=== PATIENT | female | born 1945 | race Caucasian/White ===

== ENCOUNTER 2021-05-29 18:51 | Inpatient (IN) ==
[2021-05-29] MEDS ORDERED: ONDANSETRON 4 MG/2 ML VIAL IV PRN ×2 (19:06→21:45)
[2021-05-29] MEDS ORDERED: LACTATED RINGERS 1,000 ML IV ONE (19:06)
--- NOTE | 2021-05-29 19:41 | Emergency Department Note ---
Lower Extremity Injury HPI General Chief Complaint: Extremity Injury, Lower Stated Complaint: left hip fx Time Seen by Provider: 05/29/21 19:06 Source: patient, EMS and RN notes reviewed Mode of arrival: EMS Limitations: no limitations History of Present Illness HPI Narrative: Narrative: Patient is a 75-year-old female who last night approximately 6 PM tripped on a rug or perhaps one of her cats and fell landing on her left hip. She had no loss of consciousness. She denied any syncope dizziness or preemptive symptoms. She was unable to get herself up and ended up lying on the floor until this morning when a neighbor checked on her. She stated that she did not have her cell phone or other means of calling nearby. She denies any neck or back pain no chest pain. No heart palpitations. She was seen initially at the ER in [facility] where she had notation of a left hip fracture. Consultation was made with orthopedist who agreed the patient could be treated here and she has transported for further orthopedic care. Patient was with reported total CK of 1400. She has been alert and appropriate. She notes the pain in the left hip with any movement but otherwise is quite comfortable and is mainly complaint of nausea secondary to the pain medications. She has normal sensation in the leg. She is status post previous right total hip arthroplasty. Related Data Home Medications Medication Instructions Recorded Confirmed Vitamin D3 05/29/21 levothyroxine 100 mcg PO QDAY 05/29/21 05/29/21 naproxen sodium 220 mg PO BID PRN 05/29/21 05/29/21 Allergies Allergy/AdvReac Type Severity Reaction Status Date / Time Sulfa (Sulfonamide Allergy Intermediate Hives Verified 05/29/21 18:56 Antibiotics) codeine AdvReac Intermediate Nausea Verified 05/29/21 18:56 Review of Systems ROS ROS Narrative: Narrative: A 10 system review of systems was performed and found to be negative except as o utlined above. PFSH Narrative Patient History Narrative: Narrative: Medical/Surgical/Family History All Active Problems (Updated 05/29/21 @ 20:56 by Bera Harper MD) Fracture of hip (Acute) Social History Smoking Status: Never smoker Exam Narrative Narrative: Narrative: General: Alert, Nontoxic, GCS 15. Speaking full sentences without dyspnea. She is thin appearing HEENT: NCAT, PERRL, Oral pharynx with dry mucus membranes. No pharyngeal erythema. No conjunctival pallor Neck: Supple, No lymphadenopathy Chest: Stable Heart: Regular rate and rhythm without murmur Lungs: Clear to auscultation bilaterally Abdomen: Soft, nondistended, nontender : No bladder distention Back: Nontraumatic, No CVA tenderness to palpation. Skin: No rash or lesion Extremity: Shortening and external rotation of the left lower extremity. Pulses 1+ at the radial and dorsalis pedis bilaterally. Neurologic: Moves all extremities in appropriate coordinated fashion with the limitation of movement of the left hip. She otherwise is with normal movement at the foot and ankle on the left. General Limitations: no limitations Course Vital Signs Vital signs: Vital Signs Temperature 98.5 F 05/29/21 18:52 Pulse Rate 86 05/29/21 18:52 Respiratory Rate 18 05/29/21 18:52 Blood Pressure 120/88 05/29/21 18:52 Pulse Oximetry (%) 91 05/29/21 18:52 Temperature 98.5 F 05/29/21 18:52 Pulse Rate 98 H 05/29/21 20:31 Respiratory Rate 18 05/29/21 18:52 Blood Pressure 140/69 05/29/21 20:31 Pulse Oximetry (%) 97 05/29/21 20:31 MDM MDM Narrative Medical decision making narrative: Narrative: Patient is with subtrochanteric left femur fracture with avulsion of the lesser trochanter. She has pain controlled at this time. She was given IV fluid hydration and will be admitted to the hospitalist service with further orthopedic consultation for the break. No evidence of head injury. Patient did not have precipitating symptoms and notes it is a mechanical fall. Lab Data Result diagrams: 05/29/21 19:15 05/29/21 19:15 Labs: Lab Results 05/29/21 05/29/21 05/29/21 Range/Units 19:15 19:15 19:15 WBC 9.2 (4.5-11.0) K/mcL RBC 3.34 L (4.00-5.20) M/mcL Hgb 9.9 L (12.0-15.0) g/dL Hct 30.2 L (36.0-48.0) % MCV 90.4 (80.0-100.0) fL MCH 29.6 (26.0-34.0) pg MCHC 32.8 (31.0-36.0) g/dL RDW 12.8 (11.5-14.5) % Plt Count 195 (140-440) K/mcL MPV 9.3 (7.4-10.4) fL Neut % (Auto) 84.3 H (38.0-78.0) % Lymph % (Auto) 7.2 L (15.0-49.0) % [place] % (Auto) 8.2 (1.0-12.0) % Eos % (Auto) 0 (0.0-7.0) % Baso % (Auto) 0.3 (0.0-2.0) % Lymph # (Auto) 0.66 L (1.50-4.80) K/mcL [place] # (Auto) 0.75 (0.10-0.90) K/mcL Eos # (Auto) 0 (0.00-0.70) K/mcL Baso # (Auto) 0.03 (0.00-0.20) K/mcL Absolute Neutrophils 7.76 (1.80-8.00) K/mcL Sodium 138 (133-145) mmol/L Potassium 3.5 (3.3-5.1) mmol/L Chloride 105 (96-108) mmol/L Carbon Dioxide 22 (22-30) mmol/L Anion Gap 11.0 (8.0-16.0) BUN 15 (8-23) mg/dL Creatinine 0.5 L (0.6-1.1) mg/dL GFR Calculation 94 Glucose 104 (70-105) mg/dL Calcium 7.7 L (8.6-10.4) mg/dL Total Bilirubin 0.6 (0.1-1.0) mg/dL AST 90 H (<32) U/L ALT 30 (<40) U/L Alkaline Phosphatase 55 (39-117) U/L Myoglobin 730 H (25-58) ng/mL Total Protein 6.0 (5.9-8.4) gm/dL Albumin 3.3 (3.2-5.2) gm/dL Globulin 2.7 (2.2-3.7) gm/dL Albumin/Globulin Ratio 1.2 (1.0-2.3) Discharge Plan Patient/Caregiver Discharge Instructions Pt seen by [employer] PROGRAM COORDINATOR/PA only: No Clinical Impression: Fracture of hip Patient Disposition: Xfer As Inpt ([facility]) Condition: Fair
[2021-05-29 19:50] LABS: Basophils # (Auto) 0.03 K/mcL (0.00-0.20); Basophils % (Auto) 0.3 % (0.0-2.0); Eosinophils # (Auto) 0 K/mcL (0.00-0.70); Eosinophils % (Auto) 0 % (0.0-7.0); Hematocrit 30.2 % (36.0-48.0); Hemoglobin 9.9 g/dL (12.0-15.0); Lymphocytes # (Auto) 0.66 K/mcL (1.50-4.80); Lymphocytes % (Auto) 7.2 % (15.0-49.0); Mean Cell Volume 90.4 fL (80.0-100.0); Mean Corpuscular HGB Conc 32.8 g/dL (31.0-36.0); Mean Platelet Volume 9.3 fL (7.4-10.4); Monocytes # (Auto) 0.75 K/mcL (0.10-0.90); Monocytes % (Auto) 8.2 % (1.0-12.0); Neutrophils % (Auto) 84.3 % (38.0-78.0); Platelet Count 195 K/mcL (140-440); RBC 3.34 M/mcL (4.00-5.20); Red Cell Distribution Width 12.8 % (11.5-14.5); WBC 9.2 K/mcL (4.5-11.0)
--- NOTE | 2021-05-29 20:02 | Internal Med History&Physical ---
HPI History of Present Illness Patient information: Note initiated : 05/29/21 at 7:58 pm Service Date, if different from initiated Date: [] Patient: Jasmyn Tran a 75 y/o F admitted on for left hip fx. Chief Complaint: [] History of present illness: Ms. Tran is a 75 year old female with a history of hypothyroidism suffered a left hip fracture after a mechanical fall, internal medicine asked to admit the patient with orthopedic surgery consulting. PFSH PFSH All Active Problems (Updated 05/29/21 @ 20:56 by Bear Harper MD) Fracture of hip (Acute) MEDS/ALLERGIES Home Medications and Allergies Home Medications Medication Instructions Recorded Confirmed Type Vitamin D3 05/29/21 History levothyroxine 100 mcg PO QDAY 05/29/21 05/29/21 History naproxen sodium 220 mg PO BID PRN 05/29/21 05/29/21 History Allergies Allergy/AdvReac Type Severity Reaction Status Date / Time Sulfa (Sulfonamide Allergy Intermediate Hives Verified 05/29/21 18:56 Antibiotics) codeine AdvReac Intermediate Nausea Verified 05/29/21 18:56 EXAM Constitutional Vitals: Temp Pulse Resp BP Pulse Ox 98.5 F 103 H 18 140/65 96 05/29/21 18:52 05/29/21 19:46 05/29/21 18:52 05/29/21 19:31 05/29/21 19:46 DATA Data Completed and Pending Labs: Labs from last 24 hours 05/29/21 05/29/21 19:15 19:15 WBC 9.2 RBC 3.34 L Hgb 9.9 L Hct 30.2 L MCV 90.4 MCH 29.6 MCHC 32.8 RDW 12.8 Plt Count 195 MPV 9.3 Neut % (Auto) 84.3 H Lymph % (Auto) 7.2 L [place] % (Auto) 8.2 Eos % (Auto) 0 Baso % (Auto) 0.3 Lymph # (Auto) 0.66 L [place] # (Auto) 0.75 Eos # (Auto) 0 Baso # (Auto) 0.03 Absolute Neutrophils 7.76 Sodium Pending Potassium Pending Chloride Pending Carbon Dioxide Pending Anion Gap Pending BUN Pending Creatinine Pending GFR Calculation Pending Glucose Pending Calcium Pending Total Bilirubin Pending AST Pending ALT Pending Alkaline Phosphatase Pending Total Protein Pending Albumin Pending Globulin Pending Albumin/Globulin Ratio Pending A/P Narrative A/P Narrative: Assessment: 75 year old female with a history of hypothyroidism admitted for hip fracture, found to have elevated CK because she was down for many hours. #Left hip fracture from mechanical fall #Elevated CK from crush injury #Hypothyroidism #Osteoporosis Plan -Analgesics prn. -IV fluid, follow CK. -Morning CBC, CMP. -Continue home levothyroxine. -PT consult -Ortho consult -NPO at midnight -DVT ppx: start pharmacologic prophylaxis when ok with surgery -Code status: Full -Disposition: TBD Time Spent With Patient Time: Total time spent is greater than 50% in coordination of care (as documented) at patient's floor/unit and/or counseling patient:
[2021-05-29 20:08] LABS: ALT/SGPT 30 U/L (<40); AST/SGOT 90 U/L (<32); Albumin 3.3 gm/dL (3.2-5.2); Albumin/Globulin Ratio 1.2 (1.0-2.3); Alkaline Phosphatase 55 U/L (39-117); Bilirubin,Total 0.6 mg/dL (0.1-1.0); Blood Urea Nitrogen 15 mg/dL (8-23); Calcium 7.7 mg/dL (8.6-10.4); Carbon Dioxide 22 mmol/L (22-30); Chloride 105 mmol/L (96-108); Globulin 2.7 gm/dL (2.2-3.7); Glomerular Filtration Rate 94; Glucose 104 mg/dL (70-105)
[2021-05-29 21:15] LABS: Creatine Kinase MB 33.1 ng/mL (<3.7)
[2021-05-29] MEDS ORDERED: oxyCODONE/APAP 5/325MG TABLET PO PRN (21:45)
[2021-05-29] MEDS: ACETAMINOPHEN 325 MG TABLET PO PRN (22:49)
[2021-05-29] MEDS: 0.9 % SODIUM CHLORIDE 10 ML SYRINGE IV SCH (22:49)
[2021-05-29] MEDS: SENNOSIDES 1 TABLET PO SCH (22:50)
[2021-05-29] MEDS: LACTATED RINGERS 1,000 ML IV SCH (22:50)
[2021-05-30] MEDS: 0.9 % SODIUM CHLORIDE 10 ML SYRINGE IV SCH ×3 (04:57→22:35)
[2021-05-30 05:50] LABS: Appearance,Urine CLEAR (Clear); Bilirubin,Urine Negative (Negative); Color,Urine YELLOW; Culture Indicated,Urine No; Glucose,Urine (UA) Negative (Negative); Ketones,Urine 20 mg/dL (Negative); Leukocyte Esterase,Urine Negative /ug (Negative); Mucus,Urine FEW /hpf; Nitrate,Urine Negative (Negative); Protein,Urine Negative (Negative); Specific Gravity,Urine 1.016 (1.000-1.035); Urine RBC 4 /hpf (0-3); Urine Squamous Epithelial Cell 0 /hpf (0-4); Urine WBC 6 /hpf (0-4); Urobilinogen,Urine Negative
[2021-05-30 06:36] LABS: Basophils # (Auto) 0.04 K/mcL (0.00-0.20); Basophils % (Auto) 0.5 % (0.0-2.0); Eosinophils # (Auto) 0.01 K/mcL (0.00-0.70); Eosinophils % (Auto) 0.1 % (0.0-7.0); Hematocrit 28.7 % (36.0-48.0); Hemoglobin 9.3 g/dL (12.0-15.0); Lymphocytes # (Auto) 0.82 K/mcL (1.50-4.80); Lymphocytes % (Auto) 10.9 % (15.0-49.0); Mean Cell Volume 91.1 fL (80.0-100.0); Mean Corpuscular HGB Conc 32.4 g/dL (31.0-36.0); Mean Platelet Volume 9.3 fL (7.4-10.4); Neutrophils % (Auto) 80.5 % (38.0-78.0); Platelet Count 162 K/mcL (140-440); RBC 3.15 M/mcL (4.00-5.20); Red Cell Distribution Width 12.9 % (11.5-14.5); WBC 7.5 K/mcL (4.5-11.0)
[2021-05-30] MEDS: HYDROmorphone 0.5 MG/0.5 ML SYRINGE IV PRN ×2 (07:02→11:59)
[2021-05-30] MEDS: LACTATED RINGERS 1,000 ML IV SCH ×2 (07:11→18:07)
[2021-05-30 07:12] LABS: ALT/SGPT 30 U/L (<40); AST/SGOT 80 U/L (<32); Albumin 2.8 gm/dL (3.2-5.2); Albumin/Globulin Ratio 1.1 (1.0-2.3); Alkaline Phosphatase 49 U/L (39-117); Bilirubin,Total 0.4 mg/dL (0.1-1.0); Blood Urea Nitrogen 12 mg/dL (8-23); Calcium 7.4 mg/dL (8.6-10.4); Carbon Dioxide 24 mmol/L (22-30); Chloride 108 mmol/L (96-108); Globulin 2.6 gm/dL (2.2-3.7); Glomerular Filtration Rate 94; Glucose 84 mg/dL (70-105)
--- NOTE | 2021-05-30 07:15 | Consultation ---
DATE OF CONSULTATION: 05/29/2021 IDENTIFICATION: This is a 75-year-old female. CHIEF COMPLAINT: Complex left hip fracture. HISTORY: Ms. Tran sustained a nonsyncopal fall at home. She presented to the hospital in [place], but was on the floor for an extended period of time. She was evaluated at [facility] and felt to have apparently isolated fracture of the left hip. She is now transferred for further evaluation. PAST MEDICAL HISTORY: Hypothyroidism, otherwise fairly healthy. PAST SURGICAL HISTORY: A previous right total hip arthroplasty. SOCIAL HISTORY: She lives independently. She does not smoke. REVIEW OF SYSTEMS: She generally had been in a stable, good state of health without any acute changes in the 10-point review of systems. PHYSICAL EXAMINATION: GENERAL: She is awake and alert. She is resting comfortably. HEAD: Normocephalic and atraumatic. EYES: PERRLA. Conjunctivae clear. ENT: Within normal limits. NECK: Supple without pain on range of motion. HEART: Regular. LUNGS: Clear. ABDOMEN: Benign. LOWER EXTREMITIES: Her left lower extremity is shortened and significantly rotated. She has pain with any motion. Seems to be grossly without neurovascular deficit. RADIOGRAPHS: Demonstrate a transverse type of fracture across the subtrochanteric region, although the lesser trochanter is a separate fragment. This is significantly displaced. IMPRESSION: Left hip fracture. PLAN: We will proceed with a intramedullary device with hip screw. We reviewed surgical risks, complications and limitations. The patient understands these well and wished to proceed. GDD:lee Job ID: [id number] Doc ID: [id number] Andrew Richards MD
[2021-05-30] MEDS: LEVOTHYROXINE 100 MCG TABLET PO SCH (08:27)
[2021-05-30] MEDS ORDERED: SCOPOLAMINE 1 PATCH PATCH TOPICAL PRN (12:00)
[2021-05-30] MEDS ORDERED: IPRATROPIUM/ALBUTEROL 3 ML AMPUL.NEB NEB PRN ×2 (12:00→16:39)
[2021-05-30] MEDS ORDERED: LIDOCAINE HCL/PF 100 MG/5 ML SYRINGE IV ONE (15:44)
[2021-05-30] MEDS ORDERED: PROPOFOL 200 MG/20 ML VIAL IV ONE (15:44)
[2021-05-30] MEDS ORDERED: ONDANSETRON 4 MG/2 ML VIAL ONE (15:44)
[2021-05-30] MEDS ORDERED: GLYCOPYRROLATE 0.2 MG/ML VIAL IV ONE (15:44)
[2021-05-30] MEDS ORDERED: DEXAMETHASONE 10 MG/ML VIAL ONE (15:44)
[2021-05-30] MEDS ORDERED: PHENYLEPHRINE 10 MG/ML VIAL ONE (15:44)
[2021-05-30] MEDS ORDERED: MIDAZOLAM 2 MG/2 ML VIAL ONE (15:44)
[2021-05-30] MEDS ORDERED: HYDROmorphone 1 MG/ML SYRINGE ONE (15:44)
[2021-05-30] MEDS ORDERED: KETAMINE 50 MG/ML ML ONE (15:44)
[2021-05-30] MEDS ORDERED: MEPERIDINE 25 MG/ML VIAL IV PRN (16:39)
[2021-05-30] MEDS ORDERED: ONDANSETRON 4 MG/2 ML VIAL IV PRN (16:39)
[2021-05-30] MEDS ORDERED: BENZOCAINE/MENTHOL 1 LOZENGE PO PRN ×2 (16:39→17:07)
[2021-05-30] MEDS ORDERED: ACETAMINOPHEN 1,000 MG/100 ML BAG IV ONE (16:39)
[2021-05-30] MEDS ORDERED: fentaNYL 100 MCG/2 ML VIAL IV PRN (16:39)
[2021-05-30] MEDS ORDERED: METHOCARBAMOL 1,000 MG/10 ML VIAL IV PRN (16:39)
[2021-05-30] MEDS ORDERED: LACTATED RINGERS 1,000 ML IV SCH (16:45)
[2021-05-30] MEDS ORDERED: HYDROCODONE/APAP 7.5/325MG TABLET PO PRN (17:07)
[2021-05-30] MEDS ORDERED: FLEETS ADULT ENEMA PR PRN (17:07)
[2021-05-30] MEDS ORDERED: BISACODYL 10 MG SUPP.RECT PR PRN (17:07)
[2021-05-30] MEDS ORDERED: POLYETHYLENE GLYCOL 3350 17 GM PACKET PO PRN (17:07)
[2021-05-30] MEDS ORDERED: MAGNESIUM HYDROXIDE 30 ML ORAL.SUSP PO PRN (17:07)
--- NOTE | 2021-05-30 17:07 | Brief Operative Note ---
Brief Operative Note Date of procedure: 05/30/21 Pre-op diagnosis: Left hip fracture IT Post-op diagnosis: same Procedure: ORIF Gamma Grafts/Implants: Yes Anesthesia: GETA Findings: stable fixation Complications: none Surgeon: Andrew Richards Brine Plant Operator: Rama Ramesh Estimated blood loss (cc): 200 Specimens Removed/Pathology: none sent Condition: stable Disposition: PACU
--- NOTE | 2021-05-30 18:08 | XRay Report ---
CLINICAL INFORMATION: fracture COMPARISON: Preoperative films unavailable. FINDINGS: V shaped fracture extending through the intertrochanteric and subtrochanteric regions has been reduced to near anatomic alignment and is transfixed by long gamma nail. Severe degenerative change noted in the left hip. Right total hip prostheses is anatomically aligned now complication. SI joints show mild degeneration IMPRESSION: 1. ORIF V shaped intertrochanteric and subtrochanteric fracture of the proximal left femur. Anatomic alignment 2. Severe left hip degeneration 3. Older right total hip prostheses anatomically aligned Interpreted and Authenticated by: Owen Mccoy 05/30/21
--- NOTE | 2021-05-30 18:18 | XRay Report ---
CLINICAL INFORMATION: surgery COMPARISON: None. FINDINGS: Digital intraoperative films show intertrochanteric and subtrochanteric fracture reduced to anatomic alignment transfixed by long gamma nail. Severe left hip degeneration noted IMPRESSION: ORIF intertrochanteric subtrochanteric fracture transfixed by long gamma nail Interpreted and Authenticated by: Owen Mccoy 05/30/21
--- NOTE | 2021-05-30 20:02 | Internal Med Progress Note ---
SUBJECTIVE Subjective Patient information: Note initiated : 05/30/21 at 7:57 pm Service Date, if different from initiated Date: [] Patient: Jsamyn Tran 75 y/o F admitted on 05/29/21 for left hip fx. Chief Complaint: [] Interval history: Ms. Tran is a 75 year old female with a history of hypothyroidism suffered a left hip fracture after a mechanical fall, internal medicine asked to admit the patient with orthopedic surgery consulting. 05/30 Intramedullary nail placed today, stable post op. Physical exam Head: Atraumatic, normal inspection. Eyes: normal appearance, no scleral icterus. Neck: full ROM Respiratory: no respiratory distress. Cardiovascular: normal rate and rhythm, S1, S2. GI/Abdominal: soft, nontender, no guarding. Extremities: left hip covered in clean bandage, cold pack. Neurological: CN II-XII intact, intact motor, intact sensation. Psychiatric: normal mood. Skin: warm, normal color Constitutional Vitals: Vital Signs Temp Pulse Resp BP Pulse Ox 97.6 F 99 H 20 113/80 96 05/30/21 12:00 05/30/21 17:54 05/30/21 17:54 05/30/21 17:51 05/30/21 17:54 Period Temp Pulse Resp BP Sys/Abernathy Pulse Ox Last 24 Hr 97.6 F-98.8 F 90-106 - 99-144/59-80 93-100 Intake and Output 05/30/21 05/30/21 05/30/21 05:59 13:59 21:59 Intake Total 126 619 5535 Output Total 450 950 Balance -033 527 1505 Weight 52.798 kg Patient Weight 05/31/21 05:59 Weight 52.798 kg Intake & Output: Intake & Output 05/30/21 05/30/21 05/30/21 05:59 13:59 21:59 Intake Total 700 111 1535 Output Total 450 950 Balance -729 747 4331 Weight 52.798 kg Intake: IV 835 1100 Lactated Ringers 1,000 ml @ 093 618 4369 mls/hr IV .Q10H JOSE Rx#: [id number] Oral 200 IV - Manual Only 1150 Output: Urine Catheter Amount 450 950 Other: Urine Appearance Clear Clear Uretheral (Batista) Clear Urine Color Bright Yellow Pale Uretheral (Batista) Pale Urine Odor Uretheral (Batista) Normal OBJ DATA Labs CBC & Chem 7: 05/30/21 05:37 05/30/21 05:37 Labs: Abnormal Lab Results 05/30/21 05/30/21 05/30/21 05:37 05:37 02:34 RBC 3.15 L Hgb 9.3 L Hct 28.7 L Neut % (Auto) 80.5 H Lymph % (Auto) 10.9 L Lymph # (Auto) 0.82 L Anion Gap 6.0 L Creatinine 0.5 L Calcium 7.4 L AST 80 H Total Creatine Kinase CK-MB (CK-2) Myoglobin Total Protein 5.4 L Albumin 2.8 L Urine Ketones 20 A Urine RBC 4 H Urine WBC 6 H Urine Mucus Few A 05/29/21 05/29/21 05/29/21 19:15 19:15 19:15 RBC 3.34 L Hgb 9.9 L Hct 30.2 L Neut % (Auto) 84.3 H Lymph % (Auto) 7.2 L Lymph # (Auto) 0.66 L Anion Gap Creatinine 0.5 L Calcium 7.7 L AST 90 H Total Creatine Kinase 3370 H CK-MB (CK-2) 33.1 H Myoglobin 730 H Total Protein Albumin Urine Ketones Urine RBC Urine WBC Urine Mucus Meds: Medications Acetaminophen (Acetaminophen 325 Mg Tablet) 650 mg PO Q6HP PRN; Protocol PRN Reason: Per Pain Protocol/Fever > 101 Last Admin: 05/29/21 22:49 Dose: 650 mg Documented by: Hydrocodone Bitart/Acetaminophen (Hydrocodone/Apap 7.5/325mg Tablet) 0 tab PO Q4HP PRN; Protocol PRN Reason: Per Pain Protocol Albuterol/Ipratropium (Ipratropium/Albuterol 3 Ml Ampul.Neb) 3 ml NEB ONCE PRN PRN Reason: Shortness Of Breath Stop: 05/30/21 21:00 Bisacodyl (Bisacodyl 10 Mg Supp.Rect) 10 mg MS Q2-3DAYS PRN PRN Reason: Constipation Cefazolin Sodium (Cefazolin 1 Gm Vial) 1 gm IV Q8H JOSE Stop: 05/31/21 08:01 Docusate Sodium (Docusate Sodium 100 Mg Capsule) 100 mg PO BID JOSE Hydromorphone HCl (Hydromorphone 0.5 Mg/0.5 Ml Syringe) 0.5 mg IV Q2HP PRN; Protocol PRN Reason: Per Pain Protocol Last Admin: 05/30/21 11:59 Dose: 0.5 mg Documented by: Lactated Ringer's (Lactated Ringers) 1,000 mls @ 100 mls/hr IV .Q10H [facility] Last Admin: 05/30/21 18:07 Dose: 100 mls/hr Documented by: Levothyroxine Sodium (Levothyroxine 100 Mcg Tablet) 100 mcg PO QAMAC [facility] Last Admin: 05/30/21 08:27 Dose: 100 mcg Documented by: Magnesium Hydroxide (Magnesium Hydroxide 30 Ml Oral.Susp) 30 ml PO BIDP PRN PRN Reason: Constipation Methocarbamol (Methocarbamol 750 Mg Tablet) 750 mg PO Q6HP PRN PRN Reason: Muscle Spasm Ondansetron HCl (Ondansetron 4 Mg/2 Ml Vial) 4 mg IV Q6HP PRN PRN Reason: Nausea And Vomiting Oxycodone/Acetaminophen (Oxycodone/Apap 5/325mg Tablet) 1 tab PO Q4HP PRN; Protocol PRN Reason: Per Pain Protocol Polyethylene Glycol (Polyethylene Glycol 3350 17 Gm Packet) 17 gm PO DAILYP PRN PRN Reason: Constipation Scopolamine (Scopolamine 1 Patch Patch) 1 patch TOPICAL PREOP PRN PRN Reason: Nausea And Vomiting Stop: 05/30/21 21:00 Senna (Sennosides 1 Tablet) 2 tab PO [facility] Last Admin: 05/29/21 22:50 Dose: Not Given Documented by: Senna (Sennosides 1 Tablet) 2 tab PO [facility] Sodium Biphosphate/Sodium Phosphate (Fleets Adult Enema) 1 dose MS Q3-4DAYS PRN PRN Reason: Constipation Sodium Chloride (0.9 % Sodium Chloride 10 Ml Syringe) 10 ml IV Q8 [facility] Last Admin: 05/30/21 15:57 Dose: Not Given Documented by: Throat Lozenges (Benzocaine/Menthol 1 Lozenge) 1 lozenge PO PRN PRN PRN Reason: Sore Throat A/P Narrative A/P Narrative: Assessment: 75 year old female with a history of hypothyroidism admitted for hip fracture, found to have elevated CK because she was down for many hours. #Left hip fracture from mechanical fall s/p ORIF IM nail 05/30 #Elevated CK from crush injury #Hypothyroidism #Osteoporosis Plan -Analgesics prn. -Follow CK. -Continue home levothyroxine. -PT consult -Ortho consult -Diet -DVT ppx: start pharmacologic prophylaxis when ok with surgery -Code status: Full -Disposition: TBD Time Spent With Patient Time: Total time spent is greater than 50% in coordination of care (as documented) at patient's floor/unit and/or counseling patient: QUALITY VTE Deep Vein Thrombosis/Pulmonary Embolism Present on Admission: No
[2021-05-30] MEDS: SENNOSIDES 1 TABLET PO SCH ×2 (20:15)
[2021-05-30] MEDS: DOCUSATE SODIUM 100 MG CAPSULE PO SCH (20:15)
[2021-05-31] MEDS: LACTATED RINGERS 1,000 ML IV SCH ×4 (02:04→22:24)
[2021-05-31] MEDS: 0.9 % SODIUM CHLORIDE 10 ML SYRINGE IV SCH ×3 (06:02→20:43)
[2021-05-31 06:48] LABS: Hematocrit 25.6 % (36.0-48.0); Hemoglobin 8.3 g/dL (12.0-15.0)
[2021-05-31 07:03] LABS: INR 1.2 (0.9-1.1); Prothrombin Time 15.8 sec (11.9-14.5)
--- NOTE | 2021-05-31 07:16 | Orthopedic Progress Note ---
SUBJECTIVE Subjective Patient information: Note initiated : 05/31/21 at 7:12 am Service Date, if different from initiated Date: [] Patient: Jasmyn Tran 75 y/o F admitted on 05/29/21 for left hip fx. Chief Complaint: [S/p ORIF of left proximal femur fx] Patient is doing well and has no particular complaints. She does require assistance to be up. She denies any new onset lower extremity calf tenderness, weakness, paresthesias. Constitutional Vitals: Vital Signs Temp Pulse Resp BP Pulse Ox 98.9 F 94 H 16 114/59 95 05/31/21 07:05 05/31/21 07:05 05/31/21 07:05 05/31/21 07:05 05/31/21 07:05 Period Temp Pulse Resp BP Sys/Abernathy Pulse Ox Last 24 Hr 96.6 F-98.9 F 84-104 12-21 97-135/53-80 83-100 Intake and Output 05/30/21 05/31/21 05/31/21 21:59 05:59 13:59 Intake Total 2250 1145 Output Total 950 575 Balance 1300 570 Weight 126 lb Intake & Output: Intake & Output 05/30/21 05/31/21 05/31/21 21:59 05:59 13:59 Intake Total 2250 1145 Output Total 950 575 Balance 1300 570 Weight 126 lb Intake: IV 1100 795 Lactated Ringers 1,000 ml @ 100 1000 795 mls/hr IV .Q10H JOSE Rx#: [id number] Oral 350 IV - Manual Only 1150 Output: Urine Catheter Amount 950 575 Other: Urine Appearance Clear Clear Uretheral (Batista) Clear Urine Color Pale Bright Yellow Uretheral (Batista) Pale Urine Odor Normal Uretheral (Batista) Normal Extremities Exam Extremities exam: Present calf tenderness (negative bilaterally), Jeanette's sign (negative bilaterally), Foot pink and warm and neurovascular intact Additional comments: Surgical wound dressing in place over left lateral hip. Dressings are clean and dry. Psychiatric Psychiatric exam: Present normal affect and normal mood OBJ DATA Labs CBC & Chem 7: 05/31/21 05:39 05/30/21 05:37 Labs: Abnormal Lab Results 05/31/21 05/31/21 05/30/21 05:39 05:39 05:37 RBC Hgb 8.3 L Hct 25.6 L Neut % (Auto) Lymph % (Auto) Lymph # (Auto) PT 15.8 H INR 1.2 H Anion Gap 6.0 L Creatinine 0.5 L Calcium 7.4 L AST 80 H Total Creatine Kinase CK-MB (CK-2) Myoglobin Total Protein 5.4 L Albumin 2.8 L Urine Ketones Urine RBC Urine WBC Urine Mucus 05/30/21 05/30/21 05/29/21 05:37 02:34 19:15 RBC 3.15 L Hgb 9.3 L Hct 28.7 L Neut % (Auto) 80.5 H Lymph % (Auto) 10.9 L Lymph # (Auto) 0.82 L PT INR Anion Gap Creatinine Calcium AST Total Creatine Kinase 3370 H CK-MB (CK-2) 33.1 H Myoglobin 730 H Total Protein Albumin Urine Ketones 20 A Urine RBC 4 H Urine WBC 6 H Urine Mucus Few A 05/29/21 05/29/21 19:15 19:15 RBC 3.34 L Hgb 9.9 L Hct 30.2 L Neut % (Auto) 84.3 H Lymph % (Auto) 7.2 L Lymph # (Auto) 0.66 L PT INR Anion Gap Creatinine 0.5 L Calcium 7.7 L AST 90 H Total Creatine Kinase CK-MB (CK-2) Myoglobin Total Protein Albumin Urine Ketones Urine RBC Urine WBC Urine Mucus Meds: Medications Acetaminophen (Acetaminophen 325 Mg Tablet) 650 mg PO Q6HP PRN; Protocol PRN Reason: Per Pain Protocol/Fever > 101 Last Admin: 05/29/21 22:49 Dose: 650 mg Documented by: Hydrocodone Bitart/Acetaminophen (Hydrocodone/Apap 7.5/325mg Tablet) 0 tab PO Q4HP PRN; Protocol PRN Reason: Per Pain Protocol Bisacodyl (Bisacodyl 10 Mg Supp.Rect) 10 mg LA Q2-3DAYS PRN PRN Reason: Constipation Cefazolin Sodium (Cefazolin 1 Gm Vial) 1 gm IV Q8H [facility] Stop: 05/31/21 08:01 Last Admin: 05/31/21 00:00 Dose: 1 gm Documented by: Docusate Sodium (Docusate Sodium 100 Mg Capsule) 100 mg PO BID [facility] Last Admin: 05/30/21 20:15 Dose: 100 mg Documented by: Hydromorphone HCl (Hydromorphone 0.5 Mg/0.5 Ml Syringe) 0.5 mg IV Q2HP PRN; Protocol PRN Reason: Per Pain Protocol Last Admin: 05/30/21 11:59 Dose: 0.5 mg Documented by: Lactated Ringer's (Lactated Ringers) 1,000 mls @ 100 mls/hr IV .Q10H [facility] Last Admin: 05/31/21 02:04 Dose: 100 mls/hr Documented by: Levothyroxine Sodium (Levothyroxine 100 Mcg Tablet) 100 mcg PO QAMAC [facility] Last Admin: 05/30/21 08:27 Dose: 100 mcg Documented by: Magnesium Hydroxide (Magnesium Hydroxide 30 Ml Oral.Susp) 30 ml PO BIDP PRN PRN Reason: Constipation Methocarbamol (Methocarbamol 750 Mg Tablet) 750 mg PO Q6HP PRN PRN Reason: Muscle Spasm Ondansetron HCl (Ondansetron 4 Mg/2 Ml Vial) 4 mg IV Q6HP PRN PRN Reason: Nausea And Vomiting Oxycodone/Acetaminophen (Oxycodone/Apap 5/325mg Tablet) 1 tab PO Q4HP PRN; Protocol PRN Reason: Per Pain Protocol Polyethylene Glycol (Polyethylene Glycol 3350 17 Gm Packet) 17 gm PO DAILYP PRN PRN Reason: Constipation Senna (Sennosides 1 Tablet) 2 tab PO [facility] Last Admin: 05/30/21 20:15 Dose: 2 tab Documented by: Senna (Sennosides 1 Tablet) 2 tab PO [facility] Last Admin: 05/30/21 20:15 Dose: Not Given Documented by: Sodium Biphosphate/Sodium Phosphate (Fleets Adult Enema) 1 dose LA Q3-4DAYS PRN PRN Reason: Constipation Sodium Chloride (0.9 % Sodium Chloride 10 Ml Syringe) 10 ml IV Q8 [facility] Last Admin: 05/31/21 06:02 Dose: Not Given Documented by: Throat Lozenges (Benzocaine/Menthol 1 Lozenge) 1 lozenge PO PRN PRN PRN Reason: Sore Throat A/P Assessment and plan (1) Fracture of hip: Status: Acute Qualifiers: Encounter type: initial encounter Fracture type: closed Laterality: left Qualified Code(s): S72.002A - Fracture of unspecified part of neck of left femur, initial encounter for closed fracture Narrative A/P Narrative: TTWB on LLE extremity. PT today. Case management consult for likely SNF placement in 1-2 days. Time Spent With Patient Time: Total time spent is greater than 50% in coordination of care (as documented) at patient's floor/unit and/or counseling patient:
--- NOTE | 2021-05-31 08:02 | Operative Note ---
DATE OF OPERATION: 05/30/2021 PREOPERATIVE DIAGNOSIS: Left intertrochanteric hip fracture. POSTOPERATIVE DIAGNOSIS: Left intertrochanteric hip fracture. OPERATION PROPOSED: Open reduction internal fixation of left intertrochanteric hip fracture. OPERATION PERFORMED: Open reduction internal fixation of left intertrochanteric hip fracture SURGEON: Andrew Richards M.D. NUCLEAR FUELS RESEARCH ENGINEER: Jose Lisa PA-C. This providers expertise and technical skill were required throughout the case. The PA assisted with preoperative coordination, intraoperative retraction, wound closure, and dressing and splint application, as well as postoperative documentation and care coordination. INDICATIONS: This is a 75-year-old lady who has a markedly displaced and comminuted intertrochanteric hip fracture in need of operative stabilization. DESCRIPTION OF PROCEDURE: Informed consent was obtained, the patient was taken to the operating room and provided with the appropriate anesthetic and prophylactic antibiotics. She was carefully positioned. Her best possible reduction was obtained under the fluoroarm. This did require some partial opening of the fracture and the fracture was stabilized with a bone hook and a bone pushing awl. I then entered the tip of the greater trochanter with a guidewire. I entered the canal with the opening reamer. A long guidewire was passed down the shaft of the femur. A sequential reaming was then performed. I impacted a size 11 intramedullary reyes from [place]. This was held in position. I fired an antegrade K-wire low in the calcar up into the central portion of the femoral head and neck. I then reamed and a hip bolt was applied. Distal locking screws were applied. I locked the intramedullary implant and the hip screw together. All wounds were irrigated extensively and closed with a 0 Vicryl in interrupted fashion, 2-0 inverted deep dermal and dimas. Procedure was tolerated well. No complications. Estimated blood loss was 200 mL. GDD:danielle Job ID: [id number] Doc ID: [id number] Andrew Richards MD
[2021-05-31] MEDS: LEVOTHYROXINE 100 MCG TABLET PO SCH (08:03)
[2021-05-31] MEDS: DOCUSATE SODIUM 100 MG CAPSULE PO SCH ×2 (09:16→20:49)
[2021-05-31] MEDS: ceFAZolin 1 GM VIAL IV SCH ×2 (09:18)
--- NOTE | 2021-05-31 11:15 | Internal Med Progress Note ---
SUBJECTIVE Subjective Patient information: Note initiated : 05/31/21 at 11:13 am Service Date, if different from initiated Date: [] Patient: Jasmyn Tran a 75 y/o F admitted on 05/29/21 for left hip fx. Chief Complaint: [] Interval history: Ms. Tran is a 75 year old female with a history of hypothyroidism suffered a left hip fracture after a mechanical fall, internal medicine asked to admit the patient with orthopedic surgery consulting. 05/30 Intramedullary nail placed today, stable post op. 05/31 The patient will benefit from rehab, she prefers a swing bed in [place]. Case management working on placement. Creatine kinase trending down, post operative anemia as expected. Physical exam Head: Atraumatic, normal inspection. Eyes: normal appearance, no scleral icterus. Neck: full ROM Respiratory: no respiratory distress. Cardiovascular: normal rate and rhythm, S1, S2. GI/Abdominal: soft, nontender, no guarding. Extremities: left hip covered in clean bandage. Neurological: CN II-XII intact, intact motor, intact sensation. Psychiatric: normal mood. Skin: warm, normal color Constitutional Vitals: Vital Signs Temp Pulse Resp BP Pulse Ox 98.9 F 94 H 16 114/59 95 05/31/21 07:05 05/31/21 07:05 05/31/21 07:05 05/31/21 07:05 05/31/21 07:05 Period Temp Pulse Resp BP Sys/Abernathy Pulse Ox Last 24 Hr 96.6 F-98.9 F 84-104 12-21 97-135/53-80 83-100 Intake and Output 05/30/21 05/31/21 05/31/21 21:59 05:59 13:59 Intake Total 2250 1145 Output Total 950 575 Balance 1300 570 Weight 57.153 kg Intake & Output: Intake & Output 05/30/21 05/31/21 05/31/21 21:59 05:59 13:59 Intake Total 2250 1145 Output Total 950 575 Balance 1300 570 Weight 57.153 kg Intake: IV 1100 795 Lactated Ringers 1,000 ml @ 100 1000 795 mls/hr IV .Q10H [facility] Rx#: [id number] Oral 350 IV - Manual Only 1150 Output: Urine Catheter Amount 950 575 Other: Urine Appearance Clear Clear Clear Uretheral (Batista) Clear Urine Color Pale Bright Yellow Bright Yellow Uretheral (Batista) Pale Urine Odor Normal Uretheral (Batista) Normal OBJ DATA Labs CBC & Chem 7: 05/31/21 05:39 05/30/21 05:37 Labs: Abnormal Lab Results 05/31/21 05/31/21 05/31/21 05:39 05:39 05:39 RBC Hgb 8.3 L Hct 25.6 L Neut % (Auto) Lymph % (Auto) Lymph # (Auto) PT 15.8 H INR 1.2 H Anion Gap Creatinine Calcium AST Total Creatine Kinase 1462 H CK-MB (CK-2) Myoglobin Total Protein Albumin Urine Ketones Urine RBC Urine WBC Urine Mucus 05/30/21 05/30/21 05/30/21 05:37 05:37 02:34 RBC 3.15 L Hgb 9.3 L Hct 28.7 L Neut % (Auto) 80.5 H Lymph % (Auto) 10.9 L Lymph # (Auto) 0.82 L PT INR Anion Gap 6.0 L Creatinine 0.5 L Calcium 7.4 L AST 80 H Total Creatine Kinase CK-MB (CK-2) Myoglobin Total Protein 5.4 L Albumin 2.8 L Urine Ketones 20 A Urine RBC 4 H Urine WBC 6 H Urine Mucus Few A 05/29/21 05/29/21 05/29/21 19:15 19:15 19:15 RBC 3.34 L Hgb 9.9 L Hct 30.2 L Neut % (Auto) 84.3 H Lymph % (Auto) 7.2 L Lymph # (Auto) 0.66 L PT INR Anion Gap Creatinine 0.5 L Calcium 7.7 L AST 90 H Total Creatine Kinase 3370 H CK-MB (CK-2) 33.1 H Myoglobin 730 H Total Protein Albumin Urine Ketones Urine RBC Urine WBC Urine Mucus Meds: Medications Acetaminophen (Acetaminophen 325 Mg Tablet) 650 mg PO Q6HP PRN; Protocol PRN Reason: Per Pain Protocol/Fever > 101 Last Admin: 05/29/21 22:49 Dose: 650 mg Documented by: Hydrocodone Bitart/Acetaminophen (Hydrocodone/Apap 7.5/325mg Tablet) 0 tab PO Q4HP PRN; Protocol PRN Reason: Per Pain Protocol Bisacodyl (Bisacodyl 10 Mg Supp.Rect) 10 mg [place] Q2-3DAYS PRN PRN Reason: Constipation Docusate Sodium (Docusate Sodium 100 Mg Capsule) 100 mg PO BID [facility] Last Admin: 05/31/21 09:16 Dose: 100 mg Documented by: Hydromorphone HCl (Hydromorphone 0.5 Mg/0.5 Ml Syringe) 0.5 mg IV Q2HP PRN; Protocol PRN Reason: Per Pain Protocol Last Admin: 05/30/21 11:59 Dose: 0.5 mg Documented by: Lactated Ringer's (Lactated Ringers) 1,000 mls @ 100 mls/hr IV .Q10H [facility] Last Admin: 05/31/21 02:04 Dose: 100 mls/hr Documented by: Levothyroxine Sodium (Levothyroxine 100 Mcg Tablet) 100 mcg PO QAMAC [facility] Last Admin: 05/31/21 08:03 Dose: 100 mcg Documented by: Magnesium Hydroxide (Magnesium Hydroxide 30 Ml Oral.Susp) 30 ml PO BIDP PRN PRN Reason: Constipation Methocarbamol (Methocarbamol 750 Mg Tablet) 750 mg PO Q6HP PRN PRN Reason: Muscle Spasm Ondansetron HCl (Ondansetron 4 Mg/2 Ml Vial) 4 mg IV Q6HP PRN PRN Reason: Nausea And Vomiting Oxycodone/Acetaminophen (Oxycodone/Apap 5/325mg Tablet) 1 tab PO Q4HP PRN; Protocol PRN Reason: Per Pain Protocol Polyethylene Glycol (Polyethylene Glycol 3350 17 Gm Packet) 17 gm PO DAILYP PRN PRN Reason: Constipation Senna (Sennosides 1 Tablet) 2 tab PO HS [facility] Last Admin: 05/30/21 20:15 Dose: Not Given Documented by: Sodium Biphosphate/Sodium Phosphate (Fleets Adult Enema) 1 dose [place] Q3-4DAYS PRN PRN Reason: Constipation Sodium Chloride (0.9 % Sodium Chloride 10 Ml Syringe) 10 ml IV Q8 [facility] Last Admin: 05/31/21 06:02 Dose: Not Given Documented by: Throat Lozenges (Benzocaine/Menthol 1 Lozenge) 1 lozenge PO PRN PRN PRN Reason: Sore Throat A/P Narrative A/P Narrative: Assessment: 75 year old female with a history of hypothyroidism admitted for hip fracture, found to have elevated CK because she was down for ma ny hours. The patient had ORIC with IM nail on 05/30. CK down trending and good urine output. PT working with the patient, tentative plan is rehab at a swing bed in [place]. #Left hip fracture from mechanical fall s/p ORIF IM nail 05/30 #Elevated CK from crush injury #Hypothyroidism #Osteoporosis Plan -Analgesics prn. -IV fluid for elevated CK-down trending and good urine output. Likely d/c fluid soon. -Continue home levothyroxine. -PT consult -Ortho consult -Diet -DVT ppx: Lovenox SQ -Code status: Full -Disposition: Possibly discharge to swing bed in [place] tomorrow. Time Spent With Patient Time: Total time spent is greater than 50% in coordination of care (as documented) at patient's floor/unit and/or counseling patient: QUALITY VTE Deep Vein Thrombosis/Pulmonary Embolism Present on Admission: No
[2021-05-31] MEDS: ACETAMINOPHEN 325 MG TABLET PO PRN (12:39)
[2021-05-31] MEDS: METHOCARBAMOL 750 MG TABLET PO PRN (12:39)
--- NOTE | 2021-05-31 12:55 | Discharge Summary ---
Discharge Provider Provider Patient information: Note initiated : 05/31/21 at 12:54 pm Service Date, if different from initiated Date: [] Patient: Jasmyn Tran 75 y/o F admitted on 05/29/21 for left hip fx. Chief Complaint: [] Date of admission: 05/29/21 20:49 Discharge date: 06/01/21 Primary care physician: Loc Weaver Consults: 05/29/21 Consult to Physician [CONS] Stat Comment: Consulting Provider: Andrew Richards Reason For Exam: Physician to Consult Consult to Physician [CONS] Stat Comment: Consulting Provider: Jaime Salazar Reason For Exam: Physician to Consult 05/29/21 21:45 Consult to Physician [CONS] Stat Comment: Consulting Provider: Andrew Richards Reason For Exam: Physician to Consult Discharge Meds Discharge Medications Home Medications Vitamin D3 200 unit PO QDAY 05/29/21 [History Confirmed 06/01/21 Last Taken 05/28/21 09:00] calcium carbonate 400 mg PO QDAY PRN 05/29/21 [History Confirmed 06/01/21 Last Taken 05/22/21] levothyroxine 100 mcg PO QDAY 05/29/21 [History Confirmed 06/01/21 Last Taken 06/01/21 07:30 100 mcg] naproxen sodium 220 mg PO BID PRN 05/29/21 [History Confirmed 06/01/21 Last Taken 05/28/21 07:00] omeprazole 20 mg PO QDAY PRN 05/29/21 [History Confirmed 06/01/21 Last Taken 05/22/21] COURSE Hospital Course Hospital course: Interval history: Ms. Tran is a 75 year old female with a history of hypothyroidism suffered a left hip fracture after a mechanical fall, internal medicine asked to admit the patient with orthopedic surgery consulting. 05/30 Intramedullary nail placed today, stable post op. 05/31 The patient will benefit from rehab, she prefers a swing bed in [place]. Case management working on placement. Creatine kinase trending down, post operative anemia as expected. 06/01 No overnight event or new complaints. Awaiting placement. #Left hip fracture from mechanical fall s/p ORIF IM nail 05/30 #Elevated CK from crush injury #Hypothyroidism #Osteoporosis Discharge diagnosis: Left hip fracture elevated CK Secondary discharge diagnosis: Upon thyroidism osteoporosis Time Spent with Patient Time attestation: Total time spent providing and/or coordinating discharge services: Time spent: Greater than 30 minutes EXAM Constitutional Vitals: Temp Pulse Resp BP Pulse Ox 98.7 F 97 H 18 109/59 92 05/31/21 11:22 05/31/21 11:22 05/31/21 11:22 05/31/21 11:22 05/31/21 11:22 Discharge Data Data Completed and Pending Labs on day of discharge: Labs from last 24 hours 05/31/21 05/31/21 05/31/21 05:39 05:39 05:39 Hgb 8.3 L Hct 25.6 L PT 15.8 H INR 1.2 H Total Creatine Kinase 1462 H Discharge Plan Patient/Caregiver Discharge Instructions Prescriptions: Continued levothyroxine 100 mcg tablet 100 mcg PO QDAY RF: 0 naproxen sodium 220 mg Tablet 220 mg PO BID PRN (Reason: Pain) RF: 0 Vitamin D3 200 unit PO QDAY RF: 0 omeprazole 20 mg Capsule,Delayed Release(Dr/Ec) 20 mg PO QDAY PRN (Reason: Acid Reflux) RF: 0 calcium carbonate 400 mg calcium (1,000 mg) Tablet,Chewable 400 mg PO QDAY PRN (Reason: Acid Reflux) RF: 0 Follow Up Plan Follow up with: Loc Weaver [Other] Andrew Richards MD [Physician] - Disposition: Xfer As Swing Bed ([facility]) Prognosis: Fair Discharge Orders: Discharge Order (Routine); Ordered 06/01/21 Ordered By: Luis Felipe AMADO VTE Deep Vein Thrombosis/Pulmonary Embolism Present on Admission: No
[2021-05-31] MEDS: SENNOSIDES 1 TABLET PO SCH (20:49)
[2021-06-01] MEDS: ACETAMINOPHEN 325 MG TABLET PO PRN (03:31)
[2021-06-01] MEDS: METHOCARBAMOL 750 MG TABLET PO PRN (03:32)
[2021-06-01] MEDS: 0.9 % SODIUM CHLORIDE 10 ML SYRINGE IV SCH ×2 (04:28→12:53)
[2021-06-01 06:34] LABS: Hematocrit 23.3 % (36.0-48.0); Hemoglobin 7.6 g/dL (12.0-15.0)
[2021-06-01 06:51] LABS: INR 1.2 (0.9-1.1); Prothrombin Time 15.5 sec (11.9-14.5)
[2021-06-01] MEDS: LACTATED RINGERS 1,000 ML IV SCH ×2 (07:20→09:06)
[2021-06-01] MEDS: LEVOTHYROXINE 100 MCG TABLET PO SCH (07:20)
[2021-06-01] MEDS: DOCUSATE SODIUM 100 MG CAPSULE PO SCH (08:07)
--- NOTE | 2021-06-01 08:36 | Orthopedic Progress Note ---
SUBJECTIVE Subjective Patient information: Note initiated : 06/01/21 at 8:34 am Service Date, if different from initiated Date: [] Patient: Jasmyn Tran 75 y/o F admitted on 05/29/21 for left hip fx. Chief Complaint: No new ortho issues[] Constitutional Vitals: Vital Signs Temp Pulse Resp BP Pulse Ox 97.9 F 86 16 116/68 94 06/01/21 07:33 06/01/21 07:33 06/01/21 07:33 06/01/21 07:33 06/01/21 07:33 Period Temp Pulse Resp BP Sys/Abernathy Pulse Ox Last 24 Hr 97.9 F-99.8 F 86-101 16-18 99-139/54-72 91-96 Intake and Output 05/31/21 06/01/21 06/01/21 21:59 05:59 13:59 Intake Total 7492 802 9449 Output Total 1100 700 Balance 333 -550 1000 Weight 130 lb 8 oz Intake & Output: Intake & Output 05/31/21 06/01/21 06/01/21 21:59 05:59 13:59 Intake Total 0556 389 0276 Output Total 1100 700 Balance 333 -550 1000 Weight 130 lb 8 oz Intake: IV 853 1000 Lactated Ringers 1,000 ml @ 608 640 8951 mls/hr IV .Q10H [facility] Rx#: [id number] Oral 580 150 Output: Urine Catheter Amount 1100 700 Other: Meal Dinner Percent of Meal Consumed 25% Urine Appearance Clear Clear Urine Color Pale Bright Yellow Urine Odor Strong Stool Size Moderate Stool Color Brown Stool Consistency Soft Formed OBJ DATA Labs CBC & Chem 7: 06/01/21 05:49 05/30/21 05:37 Labs: Abnormal Lab Results 06/01/21 06/01/21 05/31/21 05:49 05:49 05:39 RBC Hgb 7.6 L Hct 23.3 L Neut % (Auto) Lymph % (Auto) Lymph # (Auto) PT 15.5 H INR 1.2 H Anion Gap Creatinine Calcium AST Total Creatine Kinase 1462 H CK-MB (CK-2) Myoglobin Total Protein Albumin Urine Ketones Urine RBC Urine WBC Urine Mucus 05/31/21 05/31/21 05/30/21 05:39 05:39 05:37 RBC Hgb 8.3 L Hct 25.6 L Neut % (Auto) Lymph % (Auto) Lymph # (Auto) PT 15.8 H INR 1.2 H Anion Gap 6.0 L Creatinine 0.5 L Calcium 7.4 L AST 80 H Total Creatine Kinase CK-MB (CK-2) Myoglobin Total Protein 5.4 L Albumin 2.8 L Urine Ketones Urine RBC Urine WBC Urine Mucus 05/30/21 05/30/21 05/29/21 05:37 02:34 19:15 RBC 3.15 L Hgb 9.3 L Hct 28.7 L Neut % (Auto) 80.5 H Lymph % (Auto) 10.9 L Lymph # (Auto) 0.82 L PT INR Anion Gap Creatinine Calcium AST Total Creatine Kinase 3370 H CK-MB (CK-2) 33.1 H Myoglobin 730 H Total Protein Albumin Urine Ketones 20 A Urine RBC 4 H Urine WBC 6 H Urine Mucus Few A 05/29/21 05/29/21 19:15 19:15 RBC 3.34 L Hgb 9.9 L Hct 30.2 L Neut % (Auto) 84.3 H Lymph % (Auto) 7.2 L Lymph # (Auto) 0.66 L PT INR Anion Gap Creatinine 0.5 L Calcium 7.7 L AST 90 H Total Creatine Kinase CK-MB (CK-2) Myoglobin Total Protein Albumin Urine Ketones Urine RBC Urine WBC Urine Mucus Meds: Medications Acetaminophen (Acetaminophen 325 Mg Tablet) 650 mg PO Q6HP PRN; Protocol PRN Reason: Per Pain Protocol/Fever > 101 Last Admin: 06/01/21 03:31 Dose: 650 mg Documented by: Hydrocodone Bitart/Acetaminophen (Hydrocodone/Apap 7.5/325mg Tablet) 0 tab PO Q4HP PRN; Protocol PRN Reason: Per Pain Protocol Bisacodyl (Bisacodyl 10 Mg Supp.Rect) 10 mg [place] Q2-3DAYS PRN PRN Reason: Constipation Docusate Sodium (Docusate Sodium 100 Mg Capsule) 100 mg PO BID [facility] Last Admin: 06/01/21 08:07 Dose: 100 mg Documented by: Enoxaparin Sodium (Enoxaparin 40 Mg/0.4 Ml Syringe) 40 mg SQ DAILY [facility] Last Admin: 06/01/21 08:07 Dose: 40 mg Documented by: Hydromorphone HCl (Hydromorphone 0.5 Mg/0.5 Ml Syringe) 0.5 mg IV Q2HP PRN; Protocol PRN Reason: Per Pain Protocol Last Admin: 05/30/21 11:59 Dose: 0.5 mg Documented by: Lactated Ringer's (Lactated Ringers) 1,000 mls @ 100 mls/hr IV .Q10H [facility] Last Admin: 06/01/21 07:20 Dose: 100 mls/hr Documented by: Levothyroxine Sodium (Levothyroxine 100 Mcg Tablet) 100 mcg PO QAMAC [facility] Last Admin: 06/01/21 07:20 Dose: 100 mcg Documented by: Magnesium Hydroxide (Magnesium Hydroxide 30 Ml Oral.Susp) 30 ml PO BIDP PRN PRN Reason: Constipation Methocarbamol (Methocarbamol 750 Mg Tablet) 750 mg PO Q6HP PRN PRN Reason: Muscle Spasm Last Admin: 06/01/21 03:32 Dose: 750 mg Documented by: Ondansetron HCl (Ondansetron 4 Mg/2 Ml Vial) 4 mg IV Q6HP PRN PRN Reason: Nausea And Vomiting Oxycodone/Acetaminophen (Oxycodone/Apap 5/325mg Tablet) 1 tab PO Q4HP PRN; Protocol PRN Reason: Per Pain Protocol Polyethylene Glycol (Polyethylene Glycol 3350 17 Gm Packet) 17 gm PO DAILYP PRN PRN Reason: Constipation Senna (Sennosides 1 Tablet) 2 tab PO HS [facility] Last Admin: 05/31/21 20:49 Dose: Not Given Documented by: Sodium Biphosphate/Sodium Phosphate (Fleets Adult Enema) 1 dose [place] Q3-4DAYS PRN PRN Reason: Constipation Sodium Chloride (0.9 % Sodium Chloride 10 Ml Syringe) 10 ml IV Q8 [facility] Last Admin: 06/01/21 04:28 Dose: Not Given Documented by: Throat Lozenges (Benzocaine/Menthol 1 Lozenge) 1 lozenge PO PRN PRN PRN Reason: Sore Throat A/P Narrative A/P Narrative: s/p hip ORIF, mobilize with PT. swing bed? Time Spent With Patient Time: Total time spent is greater than 50% in coordination of care (as documented) at patient's floor/unit and/or counseling patient:
[2021-06-01] MEDS ORDERED: ENOXAPARIN 40 MG/0.4 ML SYRINGE SQ SCH (09:00)
--- NOTE | 2021-06-01 10:08 | Internal Med History&Physical ---
HPI History of Present Illness Patient information: Note initiated : 06/01/21 at 10:04 am Service Date, if different from initiated Date: [] Patient: Jasmyn Tran a 75 y/o F admitted on 05/29/21 for left hip fx. Chief Complaint: [] History of present illness: Ms. Tran is a 75 year old F Interval history: Ms. Tran is a 75 year old female with a history of hypothyroidism suffered a left hip fracture after a mechanical fall, internal medicine asked to admit the patient with orthopedic surgery consulting. 05/30 Intramedullary nail placed today, stable post op. 05/31 The patient will benefit from rehab, she prefers a swing bed in [place]. Case management working on placement. Creatine kinase trending down, post operative anemia as expected. 06/01 No overnight event or new complaints. Awaiting placement. Review of Systems: denies headache/fever/chills/nausea/vomiting/chest or abdominal pain/cough/dyspnea/diarrhea. Otherwise see above. PFSH PFSH All Active Problems (Updated 05/29/21 @ 20:56 by Bear Harper MD) Fracture of hip (Acute) MEDS/ALLERGIES Home Medications and Allergies Home Medications Medication Instructions Recorded Confirmed Type Vitamin D3 200 unit PO QDAY 05/29/21 05/29/21 History calcium carbonate 400 mg PO QDAY PRN 05/29/21 05/29/21 History levothyroxine 100 mcg PO QDAY 05/29/21 05/29/21 History naproxen sodium 220 mg PO BID PRN 05/29/21 05/29/21 History omeprazole 20 mg PO QDAY PRN 05/29/21 05/29/21 History Allergies Allergy/AdvReac Type Severity Reaction Status Date / Time Sulfa (Sulfonamide Allergy Intermediate Hives Verified 05/29/21 18:56 Antibiotics) codeine AdvReac Intermediate Nausea Verified 05/29/21 18:56 EXAM Constitutional Vitals: Temp Pulse Resp BP Pulse Ox 97.9 F 86 16 116/68 94 06/01/21 07:33 06/01/21 07:33 06/01/21 07:33 06/01/21 07:33 06/01/21 07:33 Exam: General: Alert, Awake, No acute Distress Eyes/N/T: EOMI, Head/Neck: neck supple, CV: RRR, No murmurs, Pulm: Clear b/l, no wheezing/rhonchi/rales Abd: soft, nontender, +BS x4 Ext: no clubbing/cyanosis/edema. left hip dressings Neuro: Alert, no focal deficits, moves all extremities, Skin: warm/dry DATA Data Completed and Pending Labs: Labs from last 24 hours 06/01/21 06/01/21 05:49 05:49 Hgb 7.6 L Hct 23.3 L PT 15.5 H INR 1.2 H A/P Narrative A/P Narrative: A: #Left hip fracture from mechanical fall: s/p ORIF IM nail 05/30 #Elevated CK from crush injury #Hypothyroidism #Osteoporosis Plan -hip per Ortho -Analgesics prn -IV fluid for elevated CK-down trending and good urine output. d/c IVF -Continue home levothyroxine -PT consult -CM for [facility] swing bed -DVT ppx: Lovenox SQ Code status: Nurses Superintendent Spent With Patient Time: Total time spent is greater than 50% in coordination of care (as documented) at patient's floor/unit and/or counseling patient: QUALITY VTE Deep Vein Thrombosis/Pulmonary Embolism Present on Admission: No
--- NOTE | 2021-06-01 13:10 | Internal Med Progress Note ---
SUBJECTIVE Subjective Patient information: Note initiated : 06/01/21 at 1:09 pm Service Date, if different from initiated Date: [] Patient: Jasmyn Tran 75 y/o F admitted on 05/29/21 for left hip fx. Chief Complaint: [] Interval history: Ms. Tran is a 75 year old female with a history of hypothyroidism suffered a left hip fracture after a mechanical fall, internal medicine asked to admit the patient with orthopedic surgery consulting. 05/30 Intramedullary nail placed today, stable post op. 05/31 The patient will benefit from rehab, she prefers a swing bed in [place]. Case management working on placement. Creatine kinase trending down, post operative anemia as expected. 06/01 No overnight event or new complaints. Awaiting placement. Constitutional Vitals: Vital Signs Temp Pulse Resp BP Pulse Ox 98.3 F 93 H 18 123/65 93 06/01/21 11:30 06/01/21 11:30 06/01/21 11:30 06/01/21 11:30 06/01/21 11:30 Period Temp Pulse Resp BP Sys/Abernathy Pulse Ox Last 24 Hr 97.9 F-99.8 F 86-101 16-18 99-139/54-72 91-96 Intake and Output 05/31/21 06/01/21 06/01/21 21:59 05:59 13:59 Intake Total 5949 356 6786 Output Total 1100 700 Balance 333 -550 1000 Weight 59.194 kg Intake & Output: Intake & Output 05/31/21 06/01/21 06/01/21 21:59 05:59 13:59 Intake Total 9487 579 3371 Output Total 1100 700 Balance 333 -550 1000 Weight 59.194 kg Intake: IV 853 1000 Lactated Ringers 1,000 ml @ 550 174 6066 mls/hr IV .Q10H JOSE Rx#: [id number] Oral 580 150 Output: Urine Catheter Amount 1100 700 Other: Meal Dinner Lunch Percent of Meal Consumed 25% 75% Feeding Ability Independent Urine Appearance Clear Clear Urine Color Pale Bright Yellow Urine Odor Strong Stool Size Moderate Stool Color Brown Stool Consistency Soft Formed Exam: General: Alert, Awake, No acute Distress Eyes/N/T: EOMI, Head/Neck: neck supple, CV: RRR, No murmurs, Pulm: Clear b/l, no wheezing/rhonchi/rales Abd: soft, nontender, +BS x4 Ext: no clubbing/cyanosis/edema. left hip dressings Neuro: Alert, no focal deficits, moves all extremities, Skin: warm/dry OBJ DATA Labs CBC & Chem 7: 06/01/21 05:49 05/30/21 05:37 Labs: Abnormal Lab Results 06/01/21 06/01/21 05/31/21 05:49 05:49 05:39 RBC Hgb 7.6 L Hct 23.3 L Neut % (Auto) Lymph % (Auto) Lymph # (Auto) PT 15.5 H INR 1.2 H Anion Gap Creatinine Calcium AST Total Creatine Kinase 1462 H CK-MB (CK-2) Myoglobin Total Protein Albumin Urine Ketones Urine RBC Urine WBC Urine Mucus 05/31/21 05/31/21 05/30/21 05:39 05:39 05:37 RBC Hgb 8.3 L Hct 25.6 L Neut % (Auto) Lymph % (Auto) Lymph # (Auto) PT 15.8 H INR 1.2 H Anion Gap 6.0 L Creatinine 0.5 L Calcium 7.4 L AST 80 H Total Creatine Kinase CK-MB (CK-2) Myoglobin Total Protein 5.4 L Albumin 2.8 L Urine Ketones Urine RBC Urine WBC Urine Mucus 05/30/21 05/30/21 05/29/21 05:37 02:34 19:15 RBC 3.15 L Hgb 9.3 L Hct 28.7 L Neut % (Auto) 80.5 H Lymph % (Auto) 10.9 L Lymph # (Auto) 0.82 L PT INR Anion Gap Creatinine Calcium AST Total Creatine Kinase 3370 H CK-MB (CK-2) 33.1 H Myoglobin 730 H Total Protein Albumin Urine Ketones 20 A Urine RBC 4 H Urine WBC 6 H Urine Mucus Few A 05/29/21 05/29/21 19:15 19:15 RBC 3.34 L Hgb 9.9 L Hct 30.2 L Neut % (Auto) 84.3 H Lymph % (Auto) 7.2 L Lymph # (Auto) 0.66 L PT INR Anion Gap Creatinine 0.5 L Calcium 7.7 L AST 90 H Total Creatine Kinase CK-MB (CK-2) Myoglobin Total Protein Albumin Urine Ketones Urine RBC Urine WBC Urine Mucus Meds: Medications Acetaminophen (Acetaminophen 325 Mg Tablet) 650 mg PO Q6HP PRN; Protocol PRN Reason: Per Pain Protocol/Fever > 101 Last Admin: 06/01/21 03:31 Dose: 650 mg Documented by: Hydrocodone Bitart/Acetaminophen (Hydrocodone/Apap 7.5/325mg Tablet) 0 tab PO Q4HP PRN; Protocol PRN Reason: Per Pain Protocol Bisacodyl (Bisacodyl 10 Mg Supp.Rect) 10 mg OK Q2-3DAYS PRN PRN Reason: Constipation Docusate Sodium (Docusate Sodium 100 Mg Capsule) 100 mg PO BID [facility] Last Admin: 06/01/21 08:07 Dose: 100 mg Documented by: Enoxaparin Sodium (Enoxaparin 40 Mg/0.4 Ml Syringe) 40 mg SQ DAILY [facility] Last Admin: 06/01/21 08:07 Dose: 40 mg Documented by: Hydromorphone HCl (Hydromorphone 0.5 Mg/0.5 Ml Syringe) 0.5 mg IV Q2HP PRN; Protocol PRN Reason: Per Pain Protocol Last Admin: 05/30/21 11:59 Dose: 0.5 mg Documented by: Lactated Ringer's (Lactated Ringers) 1,000 mls @ 100 mls/hr IV .Q10H [facility] Last Admin: 06/01/21 09:06 Dose: Not Given Documented by: Levothyroxine Sodium (Levothyroxine 100 Mcg Tablet) 100 mcg PO QAMAC [facility] Last Admin: 06/01/21 07:20 Dose: 100 mcg Documented by: Magnesium Hydroxide (Magnesium Hydroxide 30 Ml Oral.Susp) 30 ml PO BIDP PRN PRN Reason: Constipation Methocarbamol (Methocarbamol 750 Mg Tablet) 750 mg PO Q6HP PRN PRN Reason: Muscle Spasm Last Admin: 06/01/21 03:32 Dose: 750 mg Documented by: Ondansetron HCl (Ondansetron 4 Mg/2 Ml Vial) 4 mg IV Q6HP PRN PRN Reason: Nausea And Vomiting Oxycodone/Acetaminophen (Oxycodone/Apap 5/325mg Tablet) 1 tab PO Q4HP PRN; Protocol PRN Reason: Per Pain Protocol Polyethylene Glycol (Polyethylene Glycol 3350 17 Gm Packet) 17 gm PO DAILYP PRN PRN Reason: Constipation Senna (Sennosides 1 Tablet) 2 tab PO HS [facility] Last Admin: 05/31/21 20:49 Dose: Not Given Documented by: Sodium Biphosphate/Sodium Phosphate (Fleets Adult Enema) 1 dose OK Q3-4DAYS PRN PRN Reason: Constipation Sodium Chloride (0.9 % Sodium Chloride 10 Ml Syringe) 10 ml IV Q8 [facility] Last Admin: 06/01/21 12:53 Dose: Not Given Documented by: Throat Lozenges (Benzocaine/Menthol 1 Lozenge) 1 lozenge PO PRN PRN PRN Reason: Sore Throat A/P Narrative A/P Narrative: A: #Left hip fracture from mechanical fall: s/p ORIF IM nail 05/30 #Elevated CK from crush injury #Hypothyroidism #Osteoporosis Plan -hip per Ortho -Analgesics prn -IV fluid for elevated CK-down trending and good urine output. d/c IVF -Continue home levothyroxine -PT consult -CM for [place] swing bed -DVT ppx: Lovenox SQ Code status: [employer] Spent With Patient Time: Total time spent is greater than 50% in coordination of care (as documented) at patient's floor/unit and/or counseling patient: QUALITY VTE Deep Vein Thrombosis/Pulmonary Embolism Present on Admission: No
== END 2021-06-01 14:29 | disposition swing bed (61) | DRG 482 ==
LOC: ED 18:51 → MEDSUR 20:49
PROVIDERS: ADMIT Internal Medicine; ATTEND Internal Medicine